=== PATIENT | male | born 1985 | race Two or more races ===

== ENCOUNTER → 2019-08-14 | Emergency (ER) | payer OTHER ==
[~2019-08-14] VITALS: Ht 175.3 cm; Wt 81.6 kg
--- NOTE | 2019-08-14 20:50 | NUR ---
ED Nurse Note: pt presents to ED with a laceration of his R hand between 4th and 5th digit. pt states that he was at work when this happened. he works as a infantry indirect fire crewmember at [employer] and reports a knife slipped and cut him. pt does not have any other complaints at this time
--- NOTE | 2019-08-14 21:08 | Emergency Room Report ---
History of Present Illness General Chief Complaint: Laceration Source: Patient Present Illness HPI This a 33-year-old male who is right-hand dominant. He presents with chief complaint of a laceration to his right hand. He was at work washing the dishes and a knife stabbing him to the fourth webspace on his right hand. No other injury. Took about 2 hours ago. Denies any fever chills but denies any nausea vomiting. No active bleeding. Minimal pain. Allergies: Coded Allergies: No Known Allergies (Unverified , 08/14/19) Patient History Past Medical History: see triage record, old chart reviewed Past Surgical History: none Pertinent Family History: none Social History: Denies: smoking Immunizations: UTD Reviewed Nursing Documentation: PMH: Agreed; PSxH: Agreed Nursing Documentation-PMH Past Medical History: No Stated History Review of Systems Eye: Denies: eye pain, blurred vision ENT: Denies: ear pain, nose congestion, throat swelling Respiratory: Denies: cough, shortness of breath Cardiovascular: Denies: chest pain, palpitations Gastrointestinal: Denies: abdominal pain, diarrhea, nausea, vomiting Musculoskeletal: Denies: back pain, joint pain Skin: Denies: rash Neurological: Denies: headache, numbness Endocrine: Denies: increased thirst, increased urine Hematologic/Lymphatic: Denies: easy bruising All Other Systems: negative except mentioned in HPI Physical Exam Vital Signs Date Time Temp Pulse Resp B/P (MAP) Pulse Ox O2 Delivery O2 Flow Rate FiO2 08/14/19 20:45 98.2 69 16 128/77 (94) 98 Room Air Vitals normal Sp02 EP Interpretation: reviewed, normal General Appearance: well appearing, no apparent distress, alert Head: normocephalic, atraumatic Eyes: bilateral eye PERRL, bilateral eye EOMI ENT: hearing grossly normal, normal pharynx Neck: full range of motion, supple, no meningismus Respiratory: chest non-tender, lungs clear, normal breath sounds Cardiovascular #1: regular rate, rhythm, no murmur Gastrointestinal: normal bowel sounds, non tender, no mass, no organomegaly, no bruit, non-distended Musculoskeletal: back normal, normal range of motion, gait/station normal, other - Right hand: There is a 4 mm laceration/puncture wound just proximal to the webspace of the fourth webspace. Psychiatric: mood/affect normal Procedures Laceration/Wound Repair Laceration/Wound Repair : Consent: Verbal Wound Location: upper extremity Wound's Depth, Shape: linear Wound Length (cm): 1 Wound Explored: clean Irrigated w/ Saline (ccs): 500 Anesthesia: 1% Lidocaine Volume Anesthetic (ccs): 1 Wound Repaired With: sutures Suture Size/Type: 5:0, proline Number of Sutures: 1 Patient Tolerated: Well Complications: None Medical Decision Making Diagnostic Impression: Primary Impression: Laceration ER Course Patient with a hand laceration. Clean. No evidence of foreign body or tendon laceration. Will discharge home. Last Vital Signs Date Time Temp Pulse Resp B/P (MAP) Pulse Ox O2 Delivery O2 Flow Rate FiO2 08/14/19 20:45 98.2 69 16 128/77 (94) 98 Room Air Status: improved Disposition: HOME, SELF-CARE Condition: Stable Patient Instructions: Laceration Care, Adult Additional Instructions: Follow-up with Workmen's Comp. doctor in 7 days for suture removal. Return if symptoms worsen. Serafin Paez MD Aug 14, 2019 21:08
[2019-08-14 21:15] VITALS: BP 128/77
--- NOTE | 2019-08-14 21:15 | NUR ---
ER DISCHARGE NOTE: Patient is cleared to be discharged per ERMD, pt is aox4, on room air, with stable vital signs. pt was given dc instructions, pt was able to verbalize understanding, pt id band removed without complications. pt is able to ambulate with steady gait. pt took all belongings.
== END | disposition home or self-care (01) ==
LOC: EMR 21:26
DX: S61.411A Laceration without foreign body of right hand, initial encounter (principal); W26.0XXA Contact with knife, initial encounter; Y92.9 Unspecified place or not applicable; Y99.0 Civilian activity done for income or pay
CPT/HCPCS: 99282

== ENCOUNTER 2019-10-09 22:29 | Emergency (ER) | payer SELFPAY ==
[~2019-10-09] VITALS: Ht 170.2 cm; Wt 81.6 kg
[2019-10-09 22:40] VITALS: BP 146/95
--- NOTE | 2019-10-09 22:40 | NUR ---
ED Nurse Note: Pt walked into ED from home for c/o flu like symptoms x 1 week. Pt reports being febrile at home, chills, fatigue and SOB. Pt has no fever upon triage and no cough. Pt is breathing normal, no cardiac distress and is aaox4. Pt states he had COVID test done a few days ago and is waiting on results.
[2019-10-09] MEDS ORDERED: ZITHROMAX250 MG ORAL (22:58)
--- NOTE | 2019-10-09 22:58 | Emergency Room Report ---
History of Present Illness General Chief Complaint: Flu Like Symptoms Source: Patient Present Illness [facility] This a 34-year-old male with no past medical history presents with chief complaint of shortness of breath. He had this symptom going on for about a week. Got worse tonight when he started getting short of breath. He has been having fever and chills at home. This is subjectively. He had COVID-19 outpatient testing yesterday but still waiting for results. Because of his shortness of breath he came in. Denies any cough. Nothing is productive nature. No exertional component. Nothing made it better. Nothing made it worse. Allergies: Coded Allergies: No Known Allergies (Unverified , 08/14/19) COVID-19 Screening Contact w/high risk pt: No Recent Travel to affected area: No Experienced COVID-19 symptoms?: Yes COVID-19 symptoms experienced: Shortness of Breath, Flu-Like Symptoms Patient History Past Medical History: see triage record, old chart reviewed Past Surgical History: none Pertinent Family History: none Social History: Denies: smoking Immunizations: other Reviewed Nursing Documentation: PMH: Agreed; PSxH: Agreed Nursing Documentation-PMH Past Medical History: No Stated History Review of Systems Eye: Denies: eye pain, blurred vision ENT: Denies: ear pain, nose congestion, throat swelling Respiratory: Reports: shortness of breath; Denies: cough Cardiovascular: Denies: chest pain, palpitations Gastrointestinal: Denies: abdominal pain, diarrhea, nausea, vomiting Musculoskeletal: Denies: back pain, joint pain Skin: Denies: rash Neurological: Denies: headache, numbness Endocrine: Denies: increased thirst, increased urine Hematologic/Lymphatic: Denies: easy bruising All Other Systems: negative except mentioned in HPI Physical Exam Vital Signs Date Time Temp Pulse Resp B/P (MAP) Pulse Ox O2 Delivery O2 Flow Rate FiO2 10/09/19 22:43 98.1 71 18 146/95 (112) 99 Vitals normal Sp02 EP Interpretation: reviewed, normal General Appearance: well appearing, no apparent distress, alert Head: normocephalic, atraumatic Eyes: bilateral eye PERRL, bilateral eye EOMI ENT: hearing grossly normal, normal pharynx Neck: full range of motion, supple, no meningismus Respiratory: chest non-tender, lungs clear, normal breath sounds Cardiovascular #1: regular rate, rhythm, no murmur Gastrointestinal: normal bowel sounds, non tender, no mass, no organomegaly, no bruit, non-distended Musculoskeletal: back normal, normal range of motion, gait/station normal Psychiatric: mood/affect normal Medical Decision Making Diagnostic Impression: Primary Impression: Suspected 2019 novel coronavirus infection ER Course Patient presents with symptom consistent with COVID-19 infection. He has fever chills and shortness of breath. This been ongoing for a week. He looks well. None septic in nature. Oxygenation is normal. Chest x-ray is normal. Will treat as outpatient. He already had outpatient testing. Chest X-Ray Diagnostic Results Chest X-Ray Diagnostic Results : Chest X-Ray Ordered: Yes # of Views/Limited/Complete: 1 View Indication: Shortness of Breath EP Interpretation: Yes Interpretation: no consolidation, no effusion, no pneumothorax, no acute cardiopulmonary disease Impression: No acute disease Electronically Signed by: Serafin Paez MD Last Vital Signs Date Time Temp Pulse Resp B/P (MAP) Pulse Ox O2 Delivery O2 Flow Rate FiO2 10/09/19 22:43 98.1 71 18 146/95 (112) 99 Status: improved Disposition: HOME, SELF-CARE Condition: Stable Scripts Azithromycin* (ZITHROMAX*) 250 Mg Tablet 250 MG ORAL DAILY, #4 TAB Prov: Serafin Paez MD 10/09/19 Additional Instructions: Follow-up with your doctor on Friday for results of your outpatient COVID testing. Return if symptoms worsen. Serafin Paez MD Oct 09, 2019 22:58
[2019-10-09] MEDS ORDERED: Azithromycin 250mg tab ORAL ONE (23:00)
[2019-10-09 23:05] VITALS: BP 130/92
--- NOTE | 2019-10-09 23:05 | NUR ---
ER DISCHARGE NOTE: Patient is cleared to be discharged per ERMD, pt is aox4, on room air, with stable vital signs. pt was given dc and prescription instructions, pt was able to verbalize understanding, pt id band removed. pt is able to ambulate with steady gait. pt took all belongings.
--- NOTE | 2019-10-10 01:53 | Diagnostic Imaging Report ---
EXAM: XR Chest, 1 View CLINICAL HISTORY: SOB TECHNIQUE: Frontal view of the chest. COMPARISON: None. FINDINGS: Lungs: Unremarkable. No consolidation. Pleural space: Unremarkable. No pneumothorax. Heart: Unremarkable. No cardiomegaly. Mediastinum: Unremarkable. Bones/joints: Unremarkable. IMPRESSION: Normal chest x-ray.
== END 2019-10-09 23:05 | disposition home or self-care (01) ==
LOC: EMR 22:56
DX: R06.02 Shortness of breath (principal)
CPT/HCPCS: 71045; 99283